=== PATIENT | male | born 1980 ===

== ENCOUNTER 2016-10-20 01:45 | Emergency (ER) | payer MEDICAID ==
[2016-10-20 01:45] VITALS: BMI 25.0
[2016-10-20 02:06] VITALS: RESP 18
--- NOTE | 2016-10-20 03:14 | C.PDOC ---
History Of Present Illness 36 year old male presents to the ED seeking herpes test to be performed. Patient notes a history of unprotected sex with someone who has a history of herpes prompting concern. He states he has had bloody stool for two days and denies any abdominal pain, penile lesions, constipation, vomiting or rectal pain. Time Seen by Provider: 10/20/16 02:30 Chief Complaint (Nursing): Male Genitourinary History Per: Patient History/Exam Limitations: no limitations Onset/Duration Of Symptoms: Days (2 days of bloody stool ) Associated Symptoms: denies: Fever, Chills, Nausea, Vomiting, Diarrhea, Constipation Recent travel outside of the [place]: No Past Medical History Reviewed: Historical Data, Nursing Documentation, Vital Signs Vital Signs: Last Vital Signs Temp 98.4 F 10/20/16 03:20 Pulse 89 10/20/16 03:20 Resp 18 10/20/16 03:20 BP 136/85 10/20/16 03:20 Pulse Ox 100 10/20/16 06:09 - Medical History PMH: Kidney Stones, Chronic Kidney Disease - Ordoro Procedures TETANUS TOXOID ADMINIST (01/13/14) Family History: States: Unknown Family Hx - Social History Hx Tobacco Use: Yes Hx Alcohol Use: No Hx Substance Use: Yes - Immunization History Hx Tetanus Toxoid Vaccination: No Hx Influenza Vaccination: No Hx Pneumococcal Vaccination: No Review Of Systems Constitutional: Negative for: Fever, Chills Cardiovascular: Negative for: Chest Pain, Palpitations Respiratory: Negative for: Cough, Shortness of Breath Gastrointestinal: Positive for: Hematochezia. Negative for: Nausea, Vomiting, Abdominal Pain, Diarrhea Genitourinary: Negative for: Penile Discharge, Penile Pain Physical Exam - Physical Exam Appears: Non-toxic, No Acute Distress Skin: Warm, Dry Head: Atraumatic Eye(s): bilateral: Normal Inspection, PERRL, EOMI Oral Mucosa: Moist Neck: Supple Gastrointestinal/Abdominal: Soft, No Tenderness, No Distention, No Guarding, No Rebound Rectal: Deferred (refused digital exam ), No Blood Streaked Stool, No Mass, No Tenderness, Other (small skin tag at 6 o'clock area with fissure to same area , (+)brown stools) Male Genital: Normal Inspection (no lesions), No Testicular Swelling, No Scrotal Swelling, Circumcised, Other (No leisons ) Neurological/Psych: Oriented x3 ED Course And Treatment O2 Sat by Pulse Oximetry: 100 (room air) Progress Note: Patient was informed that no blood test can be done in ER for herpes. pt advised to follow up with clinic for further STD evaluation. Patient refused other STD tests or prohylaxis for GC or chlamydia while in the ED. Disposition Counseled Patient/Family Regarding: Diagnosis, Need For Followup - Disposition Referrals: [facility] [Outside] Disposition: HOME/ ROUTINE Disposition Time: 03:11 Condition: STABLE Additional Instructions: Please follow up with PMD Use meds as prescribed Practice safe sex High fiber diet Follow up with PMD Return to ER if worse Prescriptions: Docusate Sodium [Colace] 100 mg PO TID #30 capsule Hydrocortisone [Anusol-HC] 25 mg RC BID #20 sup Instructions: Anal Fissure (ED), High Fiber Diet (ED) - Clinical Impression Clinical Impression: Anal fissure, External hemorrhoid - Scribe Statement The provider has reviewed the documentation as recorded by the Werneribsalomon Lira All medical record entries made by the Nagi were at my direction and personally dictated by me. I have reviewed the chart and agree that the record accurately reflects my personal performance of the history, physical exam, medical decision making, and the department course for this patient. I have also personally directed, reviewed, and agree with the discharge instructions and disposition.
[2016-10-20 03:21] VITALS: BP 136/85; PULSE 89; TEMP 98.4
[2016-10-20 06:04] VITALS: O2SAT 100
== END 2016-10-20 03:20 | disposition home or self-care (01) ==
LOC: SUPCPDRO 01:45 → C.ER 01:45
DX: K60.2 Anal fissure, unspecified (principal); K64.4 Residual hemorrhoidal skin tags

== ENCOUNTER → 2017-01-22 20:23 | Emergency (ER) | payer MEDICAID ==
[2017-01-22 20:23] VITALS: BMI 25.0
== END | disposition left against medical advice (07) ==
LOC: C.ER 20:23
DX: Z02.89 Encounter for other administrative examinations (principal); Z00.00 Encounter for general adult medical examination without abnormal findings